=== PATIENT | female | born 1990 | race Caucasian/White ===

== ENCOUNTER 2018-01-07 16:18 | Emergency (ER) | payer MEDICAID ==
[~2018-01-07] VITALS: Ht 160 cm; Wt 67.6 kg
[2018-01-07] MEDS ORDERED: FLUORESCEIN SODIUM 1 MG OPHTHALMIC STRIP OP ONE (16:19)
[2018-01-07] MEDS ORDERED: TETRACAINE HCL 0.5% OPHTHALMIC DROPS 15 ML OP ONE (16:19)
[2018-01-07 16:28] VITALS: BP_SYST 125
[2018-01-07] MEDS ORDERED: DIPH-TET-PERTUS Vaccine 0.5 ML VIAL (ADACEL) I.M. ONE (17:45)
[2018-01-07] MEDS ORDERED: AMOXICILLIN/CLAVULANATE POTASSIUM 875 MG TABLET PO ONE (17:45)
[2018-01-07 18:12] VITALS: BP_SYST 125
== END 2018-01-07 18:12 | disposition home or self-care (01) ==
LOC: SED 16:18
DX: S05.01XA Injury of conjunctiva and corneal abrasion without foreign body, right eye, initial encounter (principal); R03.0 Elevated blood-pressure reading, without diagnosis of hypertension; Z88.5 Allergy status to narcotic agent; W55.03XA Scratched by cat, initial encounter; Y93.89 Activity, other specified; Y92.89 Other specified places as the place of occurrence of the external cause; Y99.8 Other external cause status
CPT/HCPCS: 90715; 99283

== ENCOUNTER 2019-01-15 11:20 | Emergency (ER) | payer MEDICAID ==
[~2019-01-15] VITALS: Ht 162.6 cm; Wt 76.2 kg
[2019-01-15 11:30] VITALS: BP_SYST 124
[2019-01-15 12:55] VITALS: BP_SYST 124
== END 2019-01-15 12:55 | disposition home or self-care (01) ==
LOC: SED 11:20
DX: S96.911A Strain of unspecified muscle and tendon at ankle and foot level, right foot, initial encounter (principal); R03.0 Elevated blood-pressure reading, without diagnosis of hypertension; Z88.6 Allergy status to analgesic agent; X50.9XXA Other and unspecified overexertion or strenuous movements or postures, initial encounter; Y93.89 Activity, other specified; Y92.219 Unspecified school as the place of occurrence of the external cause; Y99.8 Other external cause status
CPT/HCPCS: 99283